=== PATIENT | male | born 1960 | race Caucasian/White ===

== ENCOUNTER 2020-11-29 08:46 | Outpatient (CLI) | payer BC, SELFPAY ==
--- NOTE | ~2020-11-29 | CT_ITS ---
EXAMINATION: CT abdomen pelvis w con DATE: 11/29/2020 09:43 INDICATION: Central lower abdominal and pelvic pain for 2 months TECHNIQUE: Computed tomography (CT) of the abdomen and pelvis was performed with 100 cc Omnipaque 350 intravenous contrast. Automated exposure control and iterative reconstruction technique were employe d. Exam dose: 1557.11 mGy-cm total exam DLP. COMPARISON: 08/02/2019 CT abdomen pelvis FINDINGS: The included lower lung zones are clear of infiltrate or consolidation. Normal heart size. Coronary artery calcification. No pericardial or pleural effusion. Status post cholecystectomy. No hepatic space-occupying mass lesion is evident. No intrahepatic or ex trahepatic bile duct or pancreatic duct dilatation. No pancreatic mass lesion or calcification. Sulema l splenic size. Normal morphology of the adrenal glands. No renal mass lesion or urinary tract calculus or hydroureteronephrosis. The urinary bladder is unrem arkable. Prostate calcifications. There is atherosclerotic calcification of the abdominal aorta and proximal left renal artery. No intr aperitoneal or retroperitoneal or pelvic mass lesion or adenopathy or ascites. No bowel obstruction, bowel wall thickening, pneumatosis or intraperitoneal free air. Diffuse idiopathic skeletal hyperostosis of the thoracic spine. Degenerative changes of the lumbar sp ine. IMPRESSION: Status post cholecystectomy Reviewed, dictated and finalized at [facility]. Reviewed, dictated and finalized at location [facility]. RANGE FEEDER IMPRESSION: Status post cholecystectomy
[2020-11-29 09:09] LABS: Estimated Glomerular Filt Rate > 60
== END 2020-11-29 08:47 | disposition home or self-care (01) ==
PROVIDERS: PCP Internal Medicine; Visit Provider Internal Medicine
DX: R10.9 Unspecified abdominal pain (principal)
CPT/HCPCS: 74177; Q9967

== ENCOUNTER → 2021-01-12 02:24 | Outpatient (CLI) | payer BC, SELFPAY ==
[2021-01-12 19:28] LABS: SARS-CoV-2 RNA PCR Negative
== END ==
PROVIDERS: PCP Internal Medicine; Visit Provider Internal Medicine Gastroenterology
DX: Z01.812 Encounter for preprocedural laboratory examination (principal); Z20.822 Contact with and (suspected) exposure to COVID-19
CPT/HCPCS: C9803; U0003; U0005

== ENCOUNTER 2021-01-15 01:38 | Day surgery (SDC) | payer BC, SELFPAY ==
[2020-12-29 09:55] VITALS: BMI 51.6
[2021-01-15] MEDS: LACTATED RINGERS 1,000 ML 150 ML IV CONT (07:08)
[2021-01-15 07:20] VITALS: BP 167/75; PULSE 67; RESP 18; TEMP 36.8; O2SAT 97
--- NOTE | 2021-01-15 07:23 | PM.HPGS ---
History of Present Illness History of Present Illness Consent: Risks, benefits, and alternatives have been discussed and questions answered. Patient agrees to proceed with procedure. Chief complaint: hx colon polyp Narrative: Darnell Clarke is a 60 year old male here for colon cancer screening. He had a polyp removed 5 years ago Review of Systems Review of Systems: All systems reviewed & are unremarkable except as noted in HPI and below PMFSH Social History Social History Tobacco type: smokeless tobacco Smokeless tobacco user: chewing tobacco Alcohol intake: current Drinks per week: 12 Living arrangements: with family Gender identity (if verbalized by the patient): Male Spiritual care concerns: No Meds Home Medications and Allergies Home Medications Medication Instructions Recorded Confirmed Type aspirin 81 mg PO DAILY 12/29/20 12/29/20 History atorvastatin 40 mg PO DAILY 12/29/20 12/29/20 History lisinopril-hydrochlorothiazide 20 - 25 tablet PO DAILY 12/29/20 12/29/20 History metoprolol succinate 25 mg PO DAILY 12/29/20 12/29/20 History Allergies Allergy/AdvReac Type Severity Reaction Status Date / Time No Known Allergies Allergy Verified 01/15/21 07:17 Vital Signs Vital Signs - 24 hr 01/15/21 07:20 Temperature 36.8 C Pulse Rate 67 Respiratory Rate 18 Blood Pressure 167/75 H Pulse Oximetry 97 Exam Resp: Auscultation: clear to auscultation bilaterally Cardio: Rate: regular rate Rhythm: regular rhythm GI: GI Palp: Yes Soft to palpation and No Tenderness to palpation present (GI) Assessment and Plan Assessment and plan (1) Colon cancer screening: Code(s): Z12.11 - Encounter for screening for malignant neoplasm of colon Status: Acute Assessment and Plan: Colonoscopy with possible biopsy or polypectomy or cautery or injection of substances. (2) Personal history of colonic polyps: Code(s): Z86.010 - Personal history of colonic polyps Status: Acute
[2021-01-15] MEDS: SIMETHICONE ORAL SUSPENSION 20 MG/0.3 ML 30 ML BOTTLE 0.6 ML IRRIGATION (08:48)
[2021-01-15 09:02] VITALS: BP 108/66; PULSE 71; RESP 22; O2SAT 97
[2021-01-15 09:05] VITALS: BP 105/68; PULSE 65; RESP 16; O2SAT 95
[2021-01-15 09:15] VITALS: BP 107/77; PULSE 68; RESP 16; O2SAT 96
== END 2021-01-15 09:25 | disposition home or self-care (01) ==
PROVIDERS: PCP Internal Medicine; Visit Provider Internal Medicine Gastroenterology
PROC: 0DJD8ZZ Inspection of Lower Intestinal Tract, Via Natural or Artificial Opening Endoscopic (ICD-10-PCS; CPT 45378; principal; 2021-01-15 08:30)
DX: Z12.11 Encounter for screening for malignant neoplasm of colon (principal); Z86.010 Personal history of colon polyps; F17.220 Nicotine dependence, chewing tobacco, uncomplicated; Z79.82 Long term (current) use of aspirin
CPT/HCPCS: 45378; J2704; J7120

== ENCOUNTER 2021-11-21 18:36 | Outpatient (CLI) | payer BC, SELFPAY ==
--- NOTE | ~2021-11-21 | XR_ITS ---
XR abdomen obstructive series DATE: 11/21/2021 19:05 INDICATION: Right-sided abdominal pain and constipation for one month TECHNIQUE: Supine and upright AP views of the abdomen COMPARISON: November 29, 2020 CT abdomen pelvis FINDINGS: The lung bases appear clear. Heart size appears normal. No intraperitoneal free air is detected. No evidence of bowel obstruction. No unusual amount of fecal material is identified in the colon. Associated as appear intact. No visceromegaly is noted. No urinary tract calcifications are evident. Surgical clips, right upper quadrant, consistent with cholecystectomy. Degenerative changes of the thoracic and lumbar spine. IMPRESSION: Status post cholecystectomy Nonspecific abdomen Degenerative changes of the thoracic and lumbar spine Reviewed, dictated and finalized at [facility] Reviewed, dictated and finalized at [facility]. OMER SUPPORT MANAGER
== END 2021-11-21 18:37 | disposition home or self-care (01) ==
LOC: CHSIMG 18:38
PROVIDERS: PCP Internal Medicine; Visit Provider Internal Medicine
DX: K59.00 Constipation, unspecified (principal); R10.30 Lower abdominal pain, unspecified
CPT/HCPCS: 74019

== ENCOUNTER 2021-12-15 09:41 | Emergency (ER) | payer BC, SELFPAY ==
[2021-12-15 09:56] VITALS: BP 130/71; PULSE 73; RESP 16; TEMP 36.2; O2SAT 98
[2021-12-15] MEDS: methylPREDNISolone SOD SUCC 125 MG VIAL IM (10:15)
--- NOTE | 2021-12-15 10:25 | ED.SKABFB ---
HPI - Skin/Abscess/Foreign Bdy General Chief complaint: Skin/Abscess/Foreign Body Stated complaint: Rash on neck and body Time Seen by Provider: 12/15/21 09:45 Source: patient and RN notes reviewed Mode of arrival: ambulatory Limitations: no limitations History of Present Illness complaint: rash Onset (ago): week(s) (3) Location: generalized Severity: moderate Severity scale (1-10): 5 Quality: pruritic Pain Consistency: other (0) Relieving factors: medication Exacerbating factors: none Context: new medication Associated symptoms: denies other symptoms Treatments prior to arrival: none Related Data Home Medications Medication Instructions Recorded Confirmed aspirin 81 mg PO DAILY 12/29/20 12/15/21 atorvastatin 40 mg PO DAILY 12/29/20 12/15/21 lisinopril-hydrochlorothiazide 20 - 25 tablet PO DAILY 12/29/20 12/15/21 metoprolol succinate 25 mg PO DAILY 12/29/20 12/15/21 Allergies Allergy/AdvReac Type Severity Reaction Status Date / Time semaglutide [From Ozempic] Allergy Intermediate Rash Verified 12/15/21 10:01 Review of Systems Review of Systems: All systems reviewed & are unremarkable except as noted in HPI and below PMFSH Past Medical History Medical History Allergic reaction to drug Contact dermatitis Social History Social History Tobacco type: smokeless tobacco Smokeless tobacco user: chewing tobacco Alcohol intake: current Drinks per week: 12 Gender identity (if verbalized by the patient): Male Spiritual care concerns: No Exam Const: General: no acute distress and alert Nutritional Appearance: obese Orientation/consciousness: patient oriented x3 HENMT: Head: normal to inspection Ears: external ears normal, TM's normal bilaterally and EAC's normal General nose exam: Normal external nose present and Normal nares present Face and sinus: normal facial exam and sinuses nontender Mouth: Yes moist mucous membranes Teeth and gingiva: dentition normal Eyes: Conjunctivae: conjunctivae normal Pupils: Equal, round and reactive pupils present EOM: EOMs intact bilaterally Neck: Neck: normal visual inspection Chest: Chest palpation & inspection: normal inspection of the chest Resp: Effort & Inspection: normal respiratory effort Auscultation: clear to auscultation bilaterally Cardio: Rate: regular rate Rhythm: regular rhythm GI: Auscultation: normal bowel sounds : General: Yes bladder normal to palpation and Yes no CVA tenderness Male General Exam: Yes normal external exam Testes: Testes normal Back/Spine/Pelvis: Back: no CVA tenderness Skin: General skin exam: normal color Other: mild urticariae of neck trunk and upper limbs. Neuro: General: patient oriented x3, moves all extremities, no meningeal signs, no focal motor deficits and CN's II-XI intact bilaterally Extrem: General: normal to inspection (rash noted.) Psych: Appearance: grossly normal and well kempt Mental Status: mental status grossly normal Affect: normal affect Thought content: Yes Normal thought content present Course Course Emergency Course: Stable with less itching. Reevaluation(s) Reevaluation #1: VSS Date: 12/15/21 Time: 10:03 Vital Signs Vital signs: Vital Signs Temperature 36.2 C L 12/15/21 09:56 Pulse Rate 73 12/15/21 09:56 Respiratory Rate 16 12/15/21 09:56 Blood Pressure 130/71 12/15/21 09:56 Pulse Oximetry 98 12/15/21 09:56 Temperature 36.4 C 12/15/21 10:49 Pulse Rate 77 12/15/21 10:49 Respiratory Rate 16 12/15/21 10:49 Blood Pressure 139/78 12/15/21 10:49 Pulse Oximetry 97 12/15/21 10:49 MDM - Skin/Abscess/Foreign Bdy Differential Diagnosis Differential diagnosis: Likely urticaria, allergic reaction to drug, eczema and contact dermatitis Critical Care Time Critical Care Time Critical Care Time: No Total Critical Care Time: 0 Di
[2021-12-15 10:49] VITALS: BP 139/78; PULSE 77; RESP 16; TEMP 36.4; O2SAT 97
== END 2021-12-15 10:52 | disposition home or self-care (01) ==
PROVIDERS: Emergency Provider Emergency Medicine; PCP Internal Medicine
DX: L23.3 Allergic contact dermatitis due to drugs in contact with skin (principal)
CPT/HCPCS: 96372; 99283; J2930

== ENCOUNTER 2022-03-25 07:03 | Emergency (ER) | payer BC, SELFPAY ==
[2022-03-25] VITALS (8 sets, daily range): BP systolic 114–167; BP diastolic 55–93; PULSE 60–75; RESP 17–18; TEMP 36.3–36.4; O2SAT 94–100
--- NOTE | ~2022-03-25 | XR_ITS ---
XR chest 1V portable DATE: 03/25/2022 07:39 INDICATION: Upper chest pain TECHNIQUE: 2 portable upright AP views COMPARISON: 12/2017 portable AP chest FINDINGS: Resection lateral aspect of the left clavicle. Osteopenia. Heart size appears within normal range. No pulmonary infiltrate or consolidation, pleural effusion or pulmonary vascular congestion or pneumothorax. IMPRESSION: No active cardiopulmonary disease Reviewed, dictated and finalized at location [facility].
--- NOTE | 2022-03-25 07:08 | ECG_ITS ---
Measurements Intervals [place] Rate: 68 P: 35 IN: 200 QRS: 56 QRSD: 90 T: 44 QT: 397 QTc: 423 Interpretive Statements SINUS RHYTHM BASELINE WANDER- I, II, III, AVR, AVL, AVF, V3-V6 NORMAL ECG Electronically Signed On 03-25-2022 7:15:29 CDT by Gianni Bravo D.O.
[2022-03-25] MEDS: ASPIRIN 81 MG CHEWABLE TABLET 324 MG PO (07:23)
[2022-03-25] MEDS: NITROGLYCERIN SL 0.4 MG TABLET SUBLINGUAL (07:24)
[2022-03-25 07:27] LABS: Basophils Percent Auto 0.8 % (0.0-1.0); Eosinophils Absolute Auto 0.73 K/mm3 (0.02-0.50); Eosinophils Percent Auto 5.9 % (1.0-6.0); Hematocrit 43.4 % (40.0-54.0); Immature Granulocyte Absolute 0.06 K/mm3 (0.00-0.00); Immature Granulocyte Percent A 0.5 % (0.0-0.0); Lymphocytes Absolute Auto 3.19 K/mm3 (1.10-4.50); Lymphocytes Percent Auto 25.6 % (18.0-42.0); Mean Corpuscular HGB Conc 32.3 g/dL (32.0-36.0); Mean Corpuscular Hemoglobin 28.4 pg (27.0-31.0); Mean Platelet Volume 8.9 fl (8.7-11.0); Monocytes Absolute Auto 1.17 K/mm3 (0.10-0.90); Monocytes Percent Auto 9.4 % (2.0-11.0); Neutrophils Absolute Auto 7.2 K/mm3 (1.7-7.2); Neutrophils Percent Auto 57.8 % (50.0-70.0); Platelet Count Result 360 K/mm3 (150-420); Red Blood Count 4.93 M/mm3 (4.70-6.10); Red Cell Distribution Width 13.7 % (11.6-14.4); White Blood Count 12.5 K/mm3 (4.8-10.8)
--- NOTE | 2022-03-25 07:29 | ED.GENADULT ---
HPI - General Adult General Chief complaint: Chest Pain Stated complaint: diaphoretic, SOB Time Seen by Provider: 03/25/22 07:16 History of Present Illness HPI narrative: Darnell is a 61M with a PMH of CAD, HTN, HLD, prediabetes, and obesity that presented to the ER with chest pain. He woke up with chest pressure a little before before coming to the ED with CP, SOB, N/V, and lightheadedness. It is unaffected by activity. There was no syncope. Since being in the ED he had a few episodes of sharp chest pain. Related Data Home Medications Medication Instructions Recorded Confirmed aspirin 81 mg tablet,delayed 81 mg PO DAILY 12/29/20 03/25/22 release atorvastatin 40 mg tablet 40 mg PO DAILY 12/29/20 03/25/22 lisinopril 20 20 - 25 tablet PO DAILY 12/29/20 03/25/22 mg-hydrochlorothiazide 25 mg tablet metoprolol succinate 25 mg 25 mg PO DAILY 12/29/20 03/25/22 tablet,extended release 24 hr Allergies Allergy/AdvReac Type Severity Reaction Status Date / Time semaglutide [From Ozempic] Allergy Intermediate Rash Verified 03/25/22 07:38 Review of Systems Constitutional: Constitutional: Reports no additional constitutional complaints, Denies chills, Denies fatigue and Denies fever(s) Eyes: Eyes: Reports no additional eye complaints ENT: Reports system reviewed and no additional complaints, except as documented Cardiovascular: Cardiovascular: Reports no additional cardiovascular complaints Respiratory: Respiratory: Reports as per HPI Gastrointestinal: Gastrointestinal: Reports no additional gastrointestinal complaints Genitourinary: Genitourinary: Reports no additional male genitourinary complaints Musculoskeletal: Musculoskeletal: Reports no additional musculoskeletal complaints Integumentary/Breasts: Skin/Breast: Reports system reviewed and no additional complaints, except as docu Neurologic: Reports system reviewed and no additional complaints, except as documented Psychiatric: Psychiatric: Reports no additional psychiatric complaints Endocrine: Endocrine: Reports no additional endocrine complaints Hematologic/Lymphatic: Hematologic/Lymphatic: Reports no additional hematologic/lymphatic complaints Allergic/Immunologic: Allergic/Immunologic: Reports no additional allergic/immunologic complaints PMFSH Past Medical History Medical History Allergic reaction to drug Contact dermatitis Social History Social History Tobacco type: smokeless tobacco Smokeless tobacco user: chewing tobacco Alcohol intake: current Drinks per week: 12 Gender identity (if verbalized by the patient): Male Spiritual care concerns: No Exam Const: General: healthy appearing and no acute distress HENMT: Head: normal to inspection General nose exam: Normal external nose present Eyes: Conjunctivae: conjunctivae normal Pupils: Equal, round and reactive pupils present Neck: Neck: normal visual inspection Chest: Chest palpation & inspection: normal inspection of the chest and no tenderness Resp: Effort & Inspection: normal respiratory effort Auscultation: clear to auscultation bilaterally Cardio: Rate: regular rate Rhythm: regular rhythm Heart sounds: no murmurs GI: Inspection: non-distended Auscultation: normal bowel sounds : Other: No CVA tenderness Skin: Rashes: no rashes Neuro: General: patient oriented x3 and moves all extremities Extrem: General: normal to inspection Psych: Mental Status: mental status grossly normal Course Course Emergency Course: Ordered EKG, CXR and labs EKG showed NSR with a rate of [address] elevation/depression or ectopy. Radiograph preliminary read: No correlate for patients symptoms, official read to follow. DATE: 03/25/2022 07:39 INDICATION: Upper chest pain? TECHNIQUE: 2 portable upright AP views? COMPARISON: 12/2017 portable AP chest?
[2022-03-25 07:34] LABS: Prothrombin Time 10.8 Seconds (9.50-12.10)
[2022-03-25 07:40] LABS: Alanine Aminotransferase 34 U/L (16-63); Albumin Level 3.4 g/dL (3.4-5.0); Alkaline Phosphatase 112 U/L (46-116); Anion Gap 8 mmol/L (8-16); Aspartate Amino Transferase 16 U/L (15-37); Bilirubin,Total 0.7 mg/dL (0.00-1.00); Blood Urea Nitrogen 19 mg/dL (7-18); Calcium 8.9 mg/dL (8.5-10.1); Carbon Dioxide 27 mmol/L (21-32); Chloride 104 mmol/L (98-108); Estimated Glomerular Filt Rate > 60; Glucose 168 mg/dL (70-99); Lipase 59 U/L (73-393); Magnesium 2.1 mg/dL (1.8-2.4); Osmolality Calculated 294 mOsm/kg (285-295); Sodium 139 mmol/L (136-145); Total Protein 7.4 g/dL (6.4-8.2)
[2022-03-25 08:01] LABS: NT Pro B Type Natriuretic Pept 53 pg/mL (0-125)
[2022-03-25 08:52] LABS: SARS-CoV-2 RNA PCR Negative (Negative)
== END 2022-03-25 09:00 | disposition home or self-care (01) ==
PROVIDERS: Emergency Provider Family Medicine; PCP Internal Medicine
DX: R07.9 Chest pain, unspecified (principal); Z20.822 Contact with and (suspected) exposure to COVID-19
CPT/HCPCS: 71045; 80053; 83690; 83735; 83880; 84484; 85025; 85610; 93005; 99284; A9270; C9803; U0003; U0005

== ENCOUNTER 2023-05-16 10:36 | Outpatient (CLI) | payer OTHER, SELFPAY ==
--- NOTE | ~2023-05-16 | XR_ITS ---
Right Knee Technique: AP, lateral, and sunrise views were obtained. Clinical History: Pain Findings: No fracture or dislocation is seen. Tricompartmental degenerative spurring is present. Prob able mild medial compartment narrowing. Soft tissues are unremarkable. No joint effusion is seen. Impression: Moderate tricompartmental osteoarthritis. Reviewed, dictated and finalized at location . Impression: Moderate tricompartmental osteoarthritis.
== END 2023-05-16 10:37 | disposition home or self-care (01) ==
LOC: CHSIMG 10:39
PROVIDERS: PCP Internal Medicine; Visit Provider Internal Medicine
DX: M25.561 Pain in right knee (principal); E11.9 Type 2 diabetes mellitus without complications; M17.11 Unilateral primary osteoarthritis, right knee
CPT/HCPCS: 73562

== ENCOUNTER 2023-07-03 22:16 | Emergency (ER) | payer OTHER, SELFPAY ==
--- NOTE | ~2023-07-03 | CT_ITS ---
CT of the Abdomen and Pelvis: Indication: Abdominal pain Technique: 2.5 mm axial scans were obtained through the abdomen and pelvis following intravenous adm inistration of 100 cc of Omnipaque 350. Dose reduction technique was used on this scan by utilizing a utomated exposure control and iterative reconstruction technique. The dose-length product (DLP) was 1 527.67 mGy-cm. COMPARISON: 11/29/2020 Findings: Scans through the lung bases are unremarkable. The liver, spleen, pancreas, adrenals and kidneys are within normal limits. Cholecystectomy clips are present. There are atherosclerotic calcifications of the aorta. No lymphadenopathy. No bowel obstruction or bowel wall thickening. There is no evidence to suggest acute appendicitis. Sm all fat-containing umbilical hernia noted. Images through the pelvis were performed. Urinary bladder unremarkable. Prostate gland and seminal ve sicles are unremarkable. No ascites. Impression: Small fat-containing umbilical hernia. No other significant findings. Reviewed, dictated and finalized at [facility]. Impression: Small fat-containing umbilical hernia. No other significant findings.
[2023-07-03 22:17] VITALS: BP 181/99; PULSE 89; RESP 16; TEMP 36.5; O2SAT 97
[2023-07-03 22:58] LABS: Basophils Absolute Auto 0.07 K/mm3 (0.00-0.10); Basophils Percent Auto 0.6 % (0.0-1.0); Eosinophils Absolute Auto 0.43 K/mm3 (0.02-0.50); Eosinophils Percent Auto 3.5 % (1.0-6.0); Hematocrit 41.8 % (40.0-54.0); Hemoglobin 13.8 g/dL (14.0-18.0); Immature Granulocyte Absolute 0.04 K/mm3 (0.00-0.00); Immature Granulocyte Percent A 0.3 % (0.0-0.0); Lymphocytes Percent Auto 21.8 % (18.0-42.0); Mean Corpuscular Hemoglobin 28.8 pg (27.0-31.0); Mean Corpuscular Volume 87.3 fL (78.0-102.0); Mean Platelet Volume 8.9 fl (8.7-11.0); Monocytes Absolute Auto 0.97 K/mm3 (0.10-0.90); Monocytes Percent Auto 7.8 % (2.0-11.0); Neutrophils Absolute Auto 8.2 K/mm3 (1.7-7.2); Platelet Count Result 288 K/mm3 (150-420); Red Blood Count 4.79 M/mm3 (4.70-6.10); Red Cell Distribution Width 13.6 % (11.6-14.4); White Blood Count 12.4 K/mm3 (4.8-10.8)
[2023-07-03] MEDS: SODIUM CHLORIDE 0.9% IV 500 ML 999 ML IV CONT (23:06)
[2023-07-03] MEDS: MORPHINE SULFATE (*CRX) 4 MG/ML INJ IV PUSH (23:06)
[2023-07-03 23:17] LABS: Alanine Aminotransferase 25 U/L (16-63); Albumin Level 3.1 g/dL (3.4-5.0); Alkaline Phosphatase 91 U/L (46-116); Anion Gap 9 mmol/L (8-16); Aspartate Amino Transferase 17 U/L (15-37); Bilirubin,Total 0.6 mg/dL (0.00-1.00); Blood Urea Nitrogen 18 mg/dL (7-18); Calcium 8.8 mg/dL (8.5-10.1); Carbon Dioxide 26 mmol/L (21-32); Chloride 105 mmol/L (98-108); Estimated CRCL calculation 97 ml/min; Estimated Glomerular Filt Rate > 60; Glucose 131 mg/dL (70-99); Lipase 28 U/L (16-77); Osmolality Calculated 293 mOsm/kg (285-295); Potassium 3.3 mmol/L (3.5-5.1); Sodium 140 mmol/L (136-145); Total Protein 6.9 g/dL (6.4-8.2)
[2023-07-03 23:18] LABS: INR 1.1; Partial Thromboplastin Time 28.6 SEC (23.90-30.70); Prothrombin Time 11.7 Seconds (9.50-12.10)
[2023-07-03 23:22] LABS: Lactic Acid Reflex 0.9 mmol/L (0.4-2.0)
[2023-07-04 00:01] VITALS: BP 140/90; PULSE 88; RESP 18; TEMP 36.6; O2SAT 96
--- NOTE | 2023-07-04 00:15 | ED.ABDPAIN ---
HPI - Abdominal Pain General Chief Complaint: Abdominal Pain Stated Complaint: Stomach Pain Source: patient and family Mode of arrival: ambulatory Limitations: no limitations History of Present Illness HPI narrative: This is a 63-year-old male who presents with his with abdominal pain, patient has a known history of umbilical hernia and was told by his primary to monitor, and for last 4 days or so has been having some issues with constipation and has been straining and causing some inflammation around the periumbilical area there is a small umbilical hernia that is reducible it is tender to palpation with no fever chills no nausea vomiting no chest pain no shortness of breath. MD elicited complaint: abdominal pain Pertinent past history: constipation Onset (ago): day(s) Pain Consistency: constant Location: periumbilical Severity: moderate Pain scale (0-10): 6 Quality: aching Radiation: none Migration to: no migration Exacerbating factors: bowel movement Relieving factors: nothing Associated symptoms: denies other symptoms Related Data Home Medications Medication Instructions Recorded Confirmed aspirin 81 mg tablet,delayed 81 mg PO DAILY 12/29/20 07/03/23 release atorvastatin 40 mg tablet 40 mg PO DAILY 12/29/20 07/03/23 lisinopril 20 20 - 25 tablet PO DAILY 12/29/20 07/03/23 mg-hydrochlorothiazide 25 mg tablet metoprolol succinate 25 mg 25 mg PO DAILY 12/29/20 07/03/23 tablet,extended release 24 hr Allergies Allergy/AdvReac Type Severity Reaction Status Date / Time semaglutide [From Ozempic] Allergy Intermediate Rash Verified 03/25/22 07:38 Review of Systems Review of Systems: All systems reviewed & are unremarkable except as noted in HPI and below PMFSH Past Medical History Medical History Allergic reaction to drug Contact dermatitis Social History Social History Tobacco type: smokeless tobacco Smokeless tobacco user: chewing tobacco Alcohol intake: current Drinks per week: 12 Living arrangements: with family Gender identity (if verbalized by the patient): Male Spiritual care concerns: No Exam Const: General: healthy appearing Nutritional Appearance: obese Orientation/consciousness: patient oriented x3 Limitations: no limitations Eyes: Conjunctivae: conjunctivae normal Pupils: Equal, round and reactive pupils present Neck: Neck: normal visual inspection Chest: Chest palpation & inspection: normal inspection of the chest Resp: Effort & Inspection: normal respiratory effort Auscultation: clear to auscultation bilaterally Cardio: Rate: regular rate Rhythm: regular rhythm GI: GI Palp: Yes Soft to palpation, Yes Tenderness to palpation present (GI) and Yes Hernia present ( Umbilical reducible not incarcerated) : General: Yes bladder normal to palpation Back/Spine/Pelvis: Back: no CVA tenderness Skin: General skin exam: normal color Rashes: no rashes Wounds: no wounds Neuro: General: patient oriented x3 and moves all extremities Cranial nerves: Yes Nystagmus not present Extrem: General: normal to inspection and no clubbing, cyanosis or edema Psych: Mental Status: mental status grossly normal Course Course Emergency Course: labs reviewed with patient and within normal limits, white count marginally elevated at 12,000 thousand, patient did receive IV fluids and 4mg IV morphine after reassessment of the patient's pain level has improved. CT scan reviewed with patient and family. Vital Signs Vital signs: Vital Signs Temperature 36.5 C 07/03/23 22:17 Pulse Rate 89 07/03/23 22:17 Respiratory Rate 16 07/03/23 22:17 Blood Pressure 181/99 H 07/03/23 22:17 Pulse Oximetry 97 07/03/23 22:17 Oxygen Delivery Room Air 07/03/23 22:17 Temperature 36.5 C 07/03/23 22:17 Pulse Rate 89 07/03/23 22:17 Respiratory Rate 16 0
[2023-07-04 01:02] VITALS: BP 139/90; PULSE 80; RESP 18; TEMP 37.2; O2SAT 96
== END 2023-07-04 01:02 | disposition home or self-care (01) ==
PROVIDERS: Emergency Provider Emergency Medicine; PCP Internal Medicine
DX: K42.9 Umbilical hernia without obstruction or gangrene (principal); F17.220 Nicotine dependence, chewing tobacco, uncomplicated; Z79.82 Long term (current) use of aspirin
CPT/HCPCS: 36415; 74177; 80053; 83605; 83690; 85025; 85610; 85730; 86140; 96361; 96374; 99284; J2270; J7040; Q9967

== ENCOUNTER 2025-01-17 15:35 | Outpatient (CLI) | payer OTHER, SELFPAY ==
--- NOTE | ~2025-01-17 | XR_ITS ---
XR knee LT 3V Ordering provider: Jean Cordero MD History: . chronic left knee pain . Comparison: October 01, 2016 FINDINGS: BONES: No acute fracture or dislocation. JOINT SPACES: Severe narrowing of the lateral compartment. Marginal osteophytes seen in the knee and patella. SOFT TISSUES: Normal. IMPRESSION: No acute osseous abnormality left knee. Severe osteoarthritic changes. Reviewed, dictated and finalized at location A.
--- OUTSIDE RECORDS SUMMARY | 2025-01-17 18:02 | XMS_ITS | Clinical Summary ---
Author Organization [facility] Address [address] [place] [address] Care Team Providers Care Metal Furniture Glazier Name Role Phone Jean Cordero MD Primary Care Provider [phone] Sofi Francis [facility] Unavailable [phone] Jacobo Lopez MD Unavailable [phone] Allergies No known active allergies Medications aspirin EC 81 MG tablet Take 1 tablet (81 mg total) by mouth daily. 10/26/2013 Active irbesartan 150 MG tablet Take 1 tablet (150 mg total) by mouth daily. 02/01/2022 Active atorvastatin (LIPITOR) 40 MG tablet Take 1 tablet (40 mg total) by mouth nightly at bedtime. 90 tablet 2 03/12/2023 Active metoprolol succinate ER (TOPROL-XL) 50 MG 24 hr tablet take one tablet by mouth daily 30 tablet 6 12/25/2023 Active Active Problems Problem Noted Date Diagnosed Date CHF (congestive heart failure) ([facility]) 12/19/2017 Diabetes ([facility]) 12/19/2017 Obese 12/19/2017 CAD (coronary artery disease) 08/02/2016 Overview (08/02/2016): s/p stent Hypertension 08/02/2016 Carotid artery disease 08/02/2016 Hyperlipidemia 08/02/2016 Sleep apnea 08/02/2016 Encounters Date Type Department Care Team Description 12/20/2024 Telephone [facility] [address] [place] [address] Fabiola Brown MD Reschedule from Last 3 Months Social History Tobacco Use Types Packs/Day Years Used Date Smoking Tobacco: Former Cigarettes 5 30 0 02/06/1970 - 02/07/2000 Smokeless Tobacco: Current Chew Tobacco Cessation:Ready to Q uit: Not Asked; Counseling Given: Not Answered Alcohol Use Standard Drinks/Week Comments Yes 16.7 (1 standard drink = 0.6 oz pure alcohol) on weekends Sex and Gender Information Value Date Recorded Sex Assigned at Not on file Legal Sex Male 10:43 PM CDT Gender Identity Not on file Sexual Orientation Not on file Last Filed Vital Signs Vital Sign Reading Time Taken Comments Blood Pressure 177/70 03/06/2023 10:35 AM CDT Pulse 64 03/06/2023 10:30 AM CDT Temperature 36.9 C (98.4 F) 12/31/2019 10:19 AM DIRECTOR OF CARDIOLOGY Respiratory Rate 20 03/06/2023 10:3 0 AM CDT Oxygen Saturation 96% 03/06/2023 10: 30 AM CDT Inhaled Oxygen Concentration - - Weight 157.2 kg (346 lb 9.6 oz) 023 10:30 AM CDT Height 172.7 cm (5' 8 ) 03/06/2023 10:3 0 AM CDT Body Mass Index 52.7 03/06/2023 10:30 AM CDT Plan of Treatment Upcoming Encounters Date Type Department Care Team ([facility] Contact Info) Description 03/29/2025 8:45 AM CDT Office Visit [facility]-[address] [place] [address] Jacobo Lopez MD [address] [facility] [address] [place] [address] Health Maintenance Due Date Last Done Comments ASCVD Statin 1962 Colorectal Cancer Screening Colonoscopy (10 Years) 1962 Kidney Health Evaluation 1962 Hemoglobin A1C 1962 Annual Physical 1965 Pneumococcal Vaccine: Pediatrics (0 to 5 Years) and At-Risk Patients (6 to 64 Years) (1 of 2 - PCV) 1968 Diabetes: Retinopathy Eye Exam 1980 Hepatitis C 1980 DTaP, Tdap and Td Vaccines ( 1 - Tdap) 1981 Zoster Vaccines (1 of 2) 2012 ASCVD LDL 12/30/2020 12/31/2019 Lipid Panel 12/30/2020 12/31/2019 RSV Immunization or 60+ Years (1 - Risk 60-74 years 1-dose series) 2022 COVID-19 Vaccine (3 - 2023-2 5 season) 2024 01/26/2021, 12/29/2020 Influenza Adult (#1) 2024 09/24/2019 Meningococcal B Vaccine Aged Out No l onger eligible based on patient's age to complete this topic Meningococcal Vaccine Aged Out No christa jose eligible based on patient's age to complete this topic RSV Immunizations Under 20 Months Aged Out No longer eligible b ased on patient's age to complete this topic Procedures Procedure Name Priority Date/Time Associated Diagnosis Comments LIPID PANEL Routine 12/31/2019 from Last 3 Months or Most Recently Relevant to Health Maintenance Results * LIPID PANEL (12/31/2019) CHOLESTEROL 167 HDL 40 TRIGLYCERIDES 85 LDL (CALCULATED) 109 12/31/2019 us [facility] Final Result from Last 3 Months or Most Recently Relevant to Health Maintenance Insurance [facility] [address] [facility] [id number] [facility] Care Teams Metal Furniture Glazier Relationship Specialty Start Date End Date Jean Cordero MD [address] [place] [id number] PCP - General INTERNAL MEDICINE 06/20/16 Sofi Francis ANP- [address] [place] [id number] Nurse Practitioner NURSE PRACTITIONER ADULT HEALTH 02/12/24 Jacobo Lopez MD [address] [facility] [address] [place] [address] Physician INTERVENTIONAL CARDIOLOGY 12/31/24
--- OUTSIDE RECORDS SUMMARY | 2025-01-17 18:02 | XMS_ITS | Encounter Summary ---
Author Organization [facility] Address [facility] access hospital[address] [place] [address] Care Team Providers Care Laundry Worker Name Role Phone Jean Cordero MD Primary Care Provider [phone] Abimael Baldwin MD Unavailable Unavailabl e Violet Cortes APRN, [employer] PORTAL CONSULTANT-C Unavailable Fabiola Brown MD Unavailable [phone] Sofi Francis ANP-BC Unavailable [phone] Jacobo Lopez MD Unavailable [phone] Encounter Details Date Type Department Care Team (Late st Contact Info) Description 11/24/2014 Abstract [facility] AT [address] [address] Abimael Baldwin MD Social History Tobacco Use Types Packs/Day Years Used Date Smoking Tobacco: Never Alcohol Use Standard Drinks/Week Comments No 0 (1 standard drink = 0.6 oz pur e alcohol) Sex and Gender Information Value Date Recorded Sex Assigned at Not on file Legal Sex Male 10:43 PM CDT Gender Identity Not on file Sexual Orientation Not on file documented as of this encounter Plan of Treatment Upcoming Encounters Date Type Department Care Team (Late Contact Info) Description 03/29/2025 8:45 AM CDT Office Visit [facility] [place] [phone] Jacobo Lopez MD [address] [facility] [address] [address] documented as of this encounter Visit Diagnoses Not on filedocumented in this encounter Care Teams Laundry Worker Relationship Specialty Start Date End Date Jean Cordero MD [address] [place] [address] PCP - General INTERNAL MEDICINE 06/20/16 Abimael Baldwin MD [address] [place] [address] [place] [employer] Coordinator CARDIOVASCULAR DISEASE 06/20/16 02/11/24 Violet Cortes APRN, [employer] PORTAL CONSULTANT-C [address] [phone] NURSE PRACTITIONER 01/11/21 02/11/24 Fabiola Brown MD [address] [place] [phone] INTERVENTIONAL CARDIOLOGY 02/12/24 12/31/24 Sofi Francis, [facility] [address] [place] [address] Nurse Practitioner NURSE PRACTITIONER ADULT HEALTH 02/12/24 Jacobo Lopez MD [address] [address] Physician INTERVENTIONAL CARDIOLOGY 12/31/24 documented as of this encounter
== END 2025-01-17 15:36 | disposition home or self-care (01) ==
LOC: CHSIMG 15:37
PROVIDERS: PCP Internal Medicine; Visit Provider Internal Medicine
DX: M25.562 Pain in left knee (principal); M17.11 Unilateral primary osteoarthritis, right knee
CPT/HCPCS: 73562

== ENCOUNTER 2025-04-04 11:42 | Emergency (ER) | payer OTHER, SELFPAY ==
[2025-04-04] VITALS (14 sets, daily range): BP systolic 108–156; BP diastolic 75–94; PULSE 77–94; RESP 14–21; TEMP 36.7; O2SAT 94–96
--- NOTE | ~2025-04-04 | XR_ITS ---
EXAMINATION: XR chest 2V DATE: 04/04/2025 12:22 INDICATION: Chest pain and tightness TECHNIQUE: PA and lateral views of the chest were obtained. COMPARISON: Chest radiograph dated 03/25/2022 FINDINGS: The lungs are clear with no focal airspace opacities, pulmonary edema, pleural effusion or pneumothor ax. The cardiomediastinal silhouette is normal. Mild thoracic spondylosis with bridging osteophytes a t multiple levels consistent with diffuse idiopathic skeletal hyperostosis (DISH). IMPRESSION: 1. No acute cardiopulmonary disease. Reviewed, dictated and finalized at location A.
--- NOTE | 2025-04-04 11:43 | ECG_ITS ---
Test Date: 2025-04-04 11:51:39 Measurements Intervals [place] Rate: 79 P: 37 [place]: 181 QRS: 38 QRSD: 104 T: 21 QT: 396 QTc: 456 Interpretive Statements SINUS RHYTHM WITH OCCASIONAL SUPRAVENTRICULAR PREMATURE COMPLEXES CONSIDER INFERIOR INFARCT, AGE INDETERMINATE ABNORMAL ECG No previous ECG available for comparison Electronically Signed On 04-04-2025 12:09:28 CDT by Gianni Bravo D.O.
[2025-04-04 11:58] LABS: Basophils Absolute Auto 0.08 K/mm3 (0.00-0.10); Basophils Percent Auto 0.7 % (0.0-1.0); Eosinophils Absolute Auto 0.24 K/mm3 (0.02-0.50); Eosinophils Percent Auto 2.2 % (1.0-6.0); Hematocrit 47.3 % (40.0-54.0); Hemoglobin 15.3 g/dL (14.0-18.0); Immature Granulocyte Absolute 0.03 K/mm3 (0.00-0.00); Immature Granulocyte Percent A 0.3 % (0.0-0.0); Lymphocytes Absolute Auto 1.72 K/mm3 (1.10-4.50); Lymphocytes Percent Auto 15.7 % (18.0-42.0); Mean Corpuscular HGB Conc 32.3 g/dL (32-36); Mean Corpuscular Volume 86.5 fL (78.0-102.0); Mean Platelet Volume 8.7 fl (8.7-11.0); Monocytes Absolute Auto 0.88 K/mm3 (0.10-0.90); Monocytes Percent Auto 8.1 % (2.0-11.0); Neutrophils Absolute Auto 7.98 K/mm3 (1.70-7.20); Platelet Count Result 330 K/mm3 (150-420); Red Blood Count 5.47 M/mm3 (4.70-6.10); Red Cell Distribution Width 13.6 % (11.6-14.4); White Blood Count 10.9 K/mm3 (4.8-10.8)
[2025-04-04 12:15] LABS: Alanine Aminotransferase 33 U/L (6-50); Albumin Level 4.5 g/dL (3.5-5.1); Alkaline Phosphatase 88 U/L (38-126); Anion Gap 5 mmol/L (4-12); Aspartate Amino Transferase 34 U/L (17-59); Blood Urea Nitrogen 10 mg/dL (9-20); Carbon Dioxide 31 mmol/L (22-30); Chloride 104 mmol/L (98-107); D Dimer 0.27 mg/L (0.19-0.50); Estimated Glomerular Filt Rate > 60; Glucose 115 mg/dL (65-110); Osmolality Calculated 290 mOsm/kg (285-295); Sodium 140 mmol/L (137-145); Total Protein 7.8 g/dL (6.3-8.2)
[2025-04-04] MEDS: NITROGLYCERIN SL 0.4 MG TABLET SUBLINGUAL ×2 (12:19→12:38)
--- NOTE | 2025-04-04 12:19 | ED.CHESTPAIN ---
HPI - Chest Pain General Chief Complaint: Chest Pain Stated Complaint: chest heavy, dizzy Source: patient Mode of arrival: ambulatory Limitations: no limitations History of Present Illness HPI narrative: 64 year old male presents to the Emergency Department complaining of chest tightness, some shortness of breath and dizziness. Onset several days ago. Intermittent. No radiation. Patient was sitting at work today when he became diaphoretic. History of cardiac stent in 2012. Denies history of known HI. Patient is diabetic. Quit smoking 25 years ago. Was smoking 5 ppd. Now chews tobacco. MD complaint: chest pain and chest discomfort Pertinent past history: coronary artery disease Onset (ago): day(s) (several) Timing of current episode: episodic Prior episodes: Yes Onset: during rest Pain location: substernal Pain radiation: none Severity: mild Quality: tightness and heaviness Relieving factors: nothing Exacerbating factors: nothing Associated symptoms: diaphoresis Treatment prior to arrival: aspirin Risk Factors Coronary artery disease risk factors: diabetes and smoking history Related Data Home Medications ?Medication ?Instructions ?Recorded ?Confirmed ?Last Taken ?Type aspirin 81 mg tablet,delayed 81 mg PO DAILY 12/29/20 07/03/23 01/14/21 History release atorvastatin 40 mg tablet 40 mg PO DAILY 12/29/20 07/03/23 01/14/21 History lisinopril 20 20 - 25 tablet PO DAILY 12/29/20 07/03/23 01/14/21 History mg-hydrochlorothiazide 25 mg tablet metoprolol succinate 25 mg 25 mg PO DAILY 12/29/20 07/03/23 01/14/21 History tablet,extended release 24 hr Allergies Allergy/AdvReac Type Severity Reaction Status Date / Time semaglutide (From Ozempic) Allergy Intermediate Rash Verified 03/25/22 07:38 Review of Systems Review of Systems: All systems reviewed & are unremarkable except as noted in HPI and below Constitutional: Constitutional: Reports as per HPI, Reports no additional constitutional complaints, Denies chills and Denies fever(s) Eyes: Eyes: Reports as per HPI and Reports no additional eye complaints ENT: Reports system reviewed and no additional complaints, except as documented and Reports dizziness Cardiovascular: Cardiovascular: Reports as per HPI, Reports no additional cardiovascular complaints and Reports chest pain Respiratory: Respiratory: Reports as per HPI, Reports no additional respiratory complaints and Reports dyspnea Gastrointestinal: Gastrointestinal: Reports as per HPI and Reports no additional gastrointestinal complaints Genitourinary: Genitourinary: Reports no additional male genitourinary complaints Musculoskeletal: Musculoskeletal: Reports no additional musculoskeletal complaints Integumentary/Breasts: Skin/Breast: Reports system reviewed and no additional complaints, except as docu Neurologic: Reports system reviewed and no additional complaints, except as documented and Reports dizziness Endocrine: Endocrine: Reports no additional endocrine complaints Hematologic/Lymphatic: Hematologic/Lymphatic: Reports no additional hematologic/lymphatic complaints Allergic/Immunologic: Allergic/Immunologic: Reports no additional allergic/immunologic complaints [facility] Past Medical History Medical History Contact dermatitis Allergic reaction to drug Social History Social History Tobacco type: smokeless tobacco Smokeless tobacco user: chewing tobacco Alcohol intake: current Drinks per week: 12 Living arrangements: with family Gender identity (if verbalized by the patient): Male Spiritual care concerns: No Exam Const: General: no acute distress and alert Nutritional Appearance: obese Orientation/consciousness: patient oriented x3 Limitations: no limitations HENMT: Head: normal to inspection Ears: external ears normal Face/Nose/Sinus: Normal external nose present Face and sinus: normal facial exam Mouth: Yes Normal oral and palatal mucosa present Throat: posterior oropharynx normal Eyes: Conjunctivae: conjunctivae normal Pupils: Equal, round and reactive pupils present EOM: EOMs intact bilaterally Direct Ophthalmoscopy: no photophobia Neck: Neck: normal visual inspection Other: no carotid bruit Chest: Chest palpation & inspection: normal inspection of the chest and no tenderness Resp: Effort & Inspection: normal respiratory effort Auscultation: clear to auscultation bilaterally and diminished lung sounds Cardio: Rate: regular rate Rhythm: regular rhythm Heart sounds: no murmurs GI: Inspection: non-distended GI Palp: Yes Soft to palpation, No Tenderness to palpation present (GI), No Guarding due to palpation present (GI) and Yes Hernia present ventral Auscultation: normal bowel sounds : General: Yes bladder normal to palpation Back/Spine/Pelvis: Back: no CVA tenderness Skin: General skin exam: normal color Rashes: no rashes Wounds: no wounds Neuro: General: patient oriented x3, moves all extremities, no meningeal signs, no focal motor deficits and CN's II-XI intact bilaterally Cranial nerves: Yes Nystagmus not present Speech: normal speech Extrem: General: normal to inspection and no clubbing, cyanosis or edema Course Course Emergency Course: 64 y/o male presents to the ED c/o several day history of chest tightness /heaviness, some shortness of breath and dizzy. Chest pain non-radiating. PE: obese, decreased breath sounds, small umbilical/ventral hernia CBC: H/H 15.3/47.3, Plt 330; wbc 10.9 with 73 S,, 16 L, 8 M CMP: Na 140, K 4, Cl 104, CO2 31, Glc 115, BUN 10, Cr 0.83; LFT's normal TNI: <0.012 / 2 Hr TNI: EKG: NSR, 79, borderline 1st degree AVB, Q waves inferiorly c/w old IMI, NAC D-dimer: 0.27 BNP: <20 CXR: NAD Tx: equipment monitor phototypesetting, pulse ox, saline lock. NTG sl [no change]. NTG sl [heaviness relieved] (3320) Report given to Melanie [Dr. Lopez's RN]. Will contact Dr. Lopez [CV] and call back ([phone]) Discussed with Dr. Lopez (). OK for patient to go home. His office will call patient in the next day or so to schedule f/u (office and scheduling cath) *reviewed and discussed results with patient and his . Discussed consultation with Dr. Lopez and his recommendations. Both voice understanding and agreement. Rx and Instructions Vital Signs Vital signs: Vital Signs Temperature 36.7 C 04/04/25 11:42 Pulse Rate 94 04/04/25 11:42 Respiratory Rate 17 04/04/25 11:42 Blood Pressure 117/89 04/04/25 11:42 Pulse Oximetry 96 04/04/25 11:42 Oxygen Delivery Room Air 04/04/25 11:42 Temperature 36.7 C 04/04/25 11:42 Pulse Rate 77 04/04/25 14:01 Respiratory Rate 21 H 04/04/25 14:01 Blood Pressure 108/75 04/04/25 14:01 Pulse Oximetry 95 04/04/25 14:01 Oxygen Delivery Room Air 04/04/25 14:01 MDM - Chest Pain Lab Data 04/04/25 11:54 04/04/25 11:54 Labs: Lab Results 04/04/25 04/04/25 Range/Units 11:54 13:34 WBC 10.9 H (4.8-10.8) K/mm3 RBC 5.47 (4.70-6.10) M/mm3 Hgb 15.3 (14.0-18.0) g/dL Hct 47.3 (40.0-54.0) % MCV 86.5 (78.0-102.0) fL MCH 28.0 (27.0-31.0) pg MCHC 32.3 (32-36) g/dL RDW 13.6 (11.6-14.4) % Plt Count 330 (150-420) K/mm3 MPV 8.7 (8.7-11.0) fl Immature Gran % (Auto) 0.3 H (0.0-0.0) % Neut % (Auto) 73.0 H (50.0-70.0) % Lymph % (Auto) 15.7 L (18.0-42.0) % [place] % (Auto) 8.1 (2.0-11.0) % Eos % (Auto) 2.2 (1.0-6.0) % Baso % (Auto) 0.7 (0.0-1.0) % Lymph # (Auto) 1.72 (1.10-4.50) K/mm3 [place] # (Auto) 0.88 (0.10-0.90) K/mm3 Eos # (Auto) 0.24 (0.02-0.50) K/mm3 Baso # (Auto) 0.08 (0.00-0.10) K/mm3 Abs Immat Gran (auto) 0.03 H (0.00-0.00) K/mm3 Absolute Neuts (auto) 7.98 H (1.70-7.20) K/mm3 Absolute Nucleated RBC 0.00 (0.00-0.00) K/mm3 Nucleated RBC % 0.0 (0-0.0) % D-Dimer 0.27 (0.19-0.50) mg/L Sodium 140 (137-145) mmol/L Potassium 4.0 (3.4-5.0) mmol/L Chloride 104 (98-107) mmol/L Carbon Dioxide 31 H (22-30) mmol/L Anion Gap 5 (4-12) mmol/L BUN 10 (9-20) mg/dL Creatinine 0.83 (0.7-1.3) mg/dL Estim Creat Clear Calc Not Reportable Estimated GFR > 60 (59 - ) Glucose 115 H (65-110) mg/dL Calculated Osmolality 290 (285-295) mOsm/kg Calcium 9.0 (8.4-10.2) mg/dL Total Bilirubin 1.0 (0.2-1.3) mg/dL AST 34 (17-59) U/L ALT 33 (6-50) U/L Alkaline Phosphatase 88 (38-126) U/L Troponin I < 0.012 < 0.012 (0.000-0.034) ng/mL NT-Pro-B Natriuret Pep < 20 (19.9-100) pg/mL Total Protein 7.8 (6.3-8.2) g/dL Albumin 4.5 (3.5-5.1) g/dL Discharge Plan Discharge Clinical Impression: Chest pain, Angina pectoris, CAD (coronary artery disease) Patient Disposition: Home Condition: Stable Instructions: Angina (ED), Chest Pain (ED) Additional Instructions: Continue home medications Use NTG as directed Rest Follow up with your Communications Administrator Return or seek medical evaluation immediately if problems or chest pain returns Patient Language: Hungarian Prescriptions: New nitroglycerin 0.4 mg tablet, sublingual 0.4 mg sublingual Q5M PRN (Reason: chest pain) Qty: 25 0RF Rx Instructions: do not exceed 3 doses per episode No Action diphenhydramine HCl [Benadryl] 25 mg capsule 50 mg PO TID Qty: 20 0RF lisinopril-hydrochlorothiazide 20-25 mg tablet 20 - 25 tablet PO DAILY atorvastatin 40 mg tablet 40 mg PO DAILY aspirin 81 mg Tablet,Delayed Release (Dr/Ec) 81 mg PO DAILY metoprolol succinate 25 mg tablet extended release 24 hr 25 mg PO DAILY Follow-up/Referrals: Jean Cordero MD [Primary Care Provider] - [facility] [Provider Group] Time of Disposition: 14:54
[2025-04-04 12:27] LABS: Troponin I < 0.012 ng/mL (0.000-0.034)
[2025-04-04 12:29] LABS: NT Pro B Type Natriuretic Pept < 20 pg/mL (19.9-100)
[2025-04-04 14:06] LABS: Troponin I < 0.012 ng/mL (0.000-0.034)
== END 2025-04-04 14:58 | disposition home or self-care (01) ==
PROVIDERS: Emergency Provider Emergency Medicine; PCP Internal Medicine
DX: I25.10 Atherosclerotic heart disease of native coronary artery without angina pectoris (principal); E11.9 Type 2 diabetes mellitus without complications; Z87.891 Personal history of nicotine dependence
CPT/HCPCS: 36415; 71046; 80053; 83880; 84484; 85025; 85380; 93005; 99284; A9270

== ENCOUNTER 2025-07-11 11:20 | Emergency (ER) | payer OTHER, SELFPAY ==
[2025-07-11] VITALS (17 sets, daily range): BP systolic 101–142; BP diastolic 65–78; PULSE 73–81; RESP 18; TEMP 36.7; O2SAT 90–99
--- NOTE | ~2025-07-11 | CT_ITS ---
EXAMINATION: CT abdomen pelvis w con DATE: 07/11/2025 12:34 INDICATION: Abdominal pain TECHNIQUE: Computed tomography (CT) of the abdomen and pelvis was performed with 100 mL Omnipaque-350 intravenous contrast. Automated exposure control and iterative reconstruction technique were employed. The dose-length product was 1415.62 mGy-cm. COMPARISON: 07/03/2023 FINDINGS: Again seen is a right lower lobe pneumatocele. Calcified right lower lobe nodule along with a few calcified hepatic and splenic nodules consistent with old granulomatous disease. Heart size is normal. Atherosclerotic coronary artery calcific lesion. No pericardial or pleural effusion. Cholecystectomy clips the gallbladder fossa. Pancreas and bilateral adrenal glands are normal. 1.2 cm cyst at the upper pole the right kidney. No bowel obstruction. Bladder is normal. Mild prostatomegaly measuring 4.5 x 3.7 cm. There is a small fat-containing umbilical hernia with some stranding in the fat within and immediately deep to the hernia suggesting possible ischemia to the herniated fat. No free intraperitoneal gas or fluid. No pathologically enlarged abdominal or pelvic lymphadenopathy. Moderate lumbar and lower thoracic spondylosis. IMPRESSION: 1. Small fat-containing umbilical hernia with mild inflammatory stranding in the fat immediately deep to the hernia suggesting possible ischemia to the herniated fat. No other acute intra-abdominal/pelvic process. 2. Prostatomegaly. Reviewed, dictated and finalized at location A. IMPRESSION: 1. Small fat-containing umbilical hernia with mild inflammatory stranding in th e fat immediately deep to the hernia suggesting possible ischemia to the hernia monae fat. No other acute intra-abdominal/pelvic process. 2. Prostatomegaly.
--- NOTE | 2025-07-11 11:28 | ED.ABDPAIN ---
HPI - Abdominal Pain General Chief Complaint: Abdominal Pain Stated Complaint: abdominal pain with diarrhea Time Seen by Provider: 07/11/25 11:27 Source: patient Mode of arrival: ambulatory Limitations: no limitations History of Present Illness HPI narrative: 65 year old male presents to the Emergency department complaining of abdominal pain. Onset this morning. Describes as sharp, intermittent pains across abdomen. No vomiting, but some nausea. Had diarrhea. Denies blood in stool. Denies urinary tract symptoms. No prior history of. MD elicited complaint: abdominal pain Pertinent past history: none Onset (ago): hour(s) (several) Pain Consistency: intermittent Location: other (across mid abdomen) Severity: moderate Quality: stabbing and sharp Radiation: none Exacerbating factors: movement and other (coughing) Relieving factors: nothing Associated symptoms: denies other symptoms Related Data Home Medications ?Medication ?Instructions ?Recorded ?Confirmed ?Last Taken ?Type aspirin 81 mg tablet,delayed 81 mg PO DAILY 12/29/20 07/11/25 01/14/21 History release atorvastatin 40 mg tablet 40 mg PO DAILY 12/29/20 07/11/25 01/14/21 History hydrochlorothiazide 25 mg tablet 25 mg PO Q12H 07/11/25 07/11/25 07/11/25 History irbesartan 300 mg tablet 300 mg PO DAILY 07/11/25 07/11/25 Unknown History metoprolol succinate 50 mg 50 mg PO Q12H 07/11/25 07/11/25 Unknown History tablet,extended release 24 hr tirzepatide 10 mg/0.5 mL 10 mg subcut WEEKLY 07/11/25 07/11/25 Unknown History subcutaneous pen injector (Mounjaro) Allergies Allergy/AdvReac Type Severity Reaction Status Date / Time semaglutide (From Ozempic) Allergy Intermediate Rash Verified 07/11/25 11:25 Review of Systems Review of Systems: All systems reviewed & are unremarkable except as noted in HPI and below Constitutional: Constitutional: Reports as per HPI, Denies chills and Denies fever(s) Eyes: Eyes: Reports as per HPI ENT: Reports system reviewed and no additional complaints, except as documented Cardiovascular: Cardiovascular: Reports as per HPI and Denies chest pain Respiratory: Respiratory: Reports as per HPI and Denies dyspnea Gastrointestinal: Gastrointestinal: Reports as per HPI, Reports abdominal pain, Denies constipation, Reports diarrhea, Reports nausea and Denies vomiting Genitourinary: Genitourinary: Reports no additional male genitourinary complaints, Denies dysuria and Denies urinary frequency Musculoskeletal: Musculoskeletal: Reports no additional musculoskeletal complaints Integumentary/Breasts: Skin/Breast: Reports system reviewed and no additional complaints, except as docu Neurologic: Reports system reviewed and no additional complaints, except as documented Endocrine: Endocrine: Reports no additional endocrine complaints Hematologic/Lymphatic: Hematologic/Lymphatic: Reports no additional hematologic/lymphatic complaints Allergic/Immunologic: Allergic/Immunologic: Reports no additional allergic/immunologic complaints [facility] Past Medical History Medical History Contact dermatitis Allergic reaction to drug Social History Social History Tobacco type: smokeless tobacco Smokeless tobacco user: chewing tobacco Alcohol intake: current Drinks per week: 12 Living arrangements: with family Gender identity (if verbalized by the patient): Male Spiritual care concerns: No Exam Const: General: alert Nutritional Appearance: obese Orientation/consciousness: patient oriented x3 Limitations: no limitations HENMT: Head: normal to inspection Ears: external ears normal Face/Nose/Sinus: Normal external nose present Face and sinus: normal facial exam Mouth: Yes Normal oral and palatal mucosa present Throat: posterior oropharynx normal Eyes: Conjunctivae: conjunctivae normal Pupils: Equal, round and reactive pupils present EOM: EOMs intact bilaterally Direct Ophthalmoscopy: no photophobia Neck: Neck: normal visual inspection Chest: Chest palpation & inspection: normal inspection of the chest Resp: Effort & Inspection: normal respiratory effort Auscultation: clear to auscultation bilaterally Cardio: Rate: regular rate Rhythm: regular rhythm GI: Inspection: non-distended GI Palp: Yes Soft to palpation, Yes Tenderness to palpation present (GI) (across mid abdomen), No Guarding due to palpation present (GI), No Palpable mass present and No Rebound tenderness present Auscultation: Hypoactive bowel sounds present : General: Yes bladder normal to palpation Back/Spine/Pelvis: Back: no CVA tenderness Skin: General skin exam: normal color Rashes: no rashes Wounds: no wounds Neuro: General: patient oriented x3 Speech: normal speech Gait exam (Neuro): Normal gait present Other: grossly normal Psych: Mental Status: mental status grossly normal Course Course Emergency Course: 65 year old male presents to the Emergency Department complaining of pain across mid abdomen. Onset today. Nausea, no vomiting. Had diarrhea. Denies urinary tract symptoms. No prior history of. PE: obese, mild tenderness across mid abdomen, no guarding or rebound CBC: H/H 15.2/46.4, Plt 351; wbc 18.2 with 79 S, 10 L, 8 M CMP: Na 142, K 3.8, Cl 105, CO2 26, Glc 115, BUN 21, Cr 0.86; LFT's normal A/L: 53 /49 Lactic: 0.9 UA: unremarkable CT Abd/Pelvis: small fat containing umbilical hernia with mild inflammatory stranding in fat immediately deep to hernia suggesting possible ischemia to herniated fat. Tx: saline lock, Toradol 30 mg IVP. *reviewed and discussed results with patient and his . Discussed further management. Will consult with surgeon re: hernia. Patient and voice understanding and agreement. ([id number]) Emmanuel contacted for surgical contact. Will call back. ([id number]) Discussed with Dr. Cerrato (Surgery). Recommends analgesic and f/u office Friday (07/18/25) *Advised patient and his of surgeon's recommendations. Both voice understanding and agreement. Rx and Instructions Vital Signs Vital signs: Vital Signs Temperature 36.7 C 07/11/25 11:20 Pulse Rate 81 07/11/25 11:20 Respiratory Rate 18 07/11/25 11:20 Blood Pressure 134/78 07/11/25 11:20 Pulse Oximetry 96 07/11/25 11:20 Oxygen Delivery Room Air 07/11/25 11:20 Temperature 36.7 C 07/11/25 11:20 Pulse Rate 73 07/11/25 12:51 Respiratory Rate 18 07/11/25 12:51 Blood Pressure 122/66 07/11/25 14:30 Pulse Oximetry 99 07/11/25 14:31 Oxygen Delivery Room Air 07/11/25 12:51 MDM - Abdominal Pain Lab Data 07/11/25 11:48 07/11/25 11:48 Labs: Lab Results 07/11/25 07/11/25 Range/Units 11:42 11:48 WBC 18.2 H (4.8-10.8) K/mm3 RBC 5.34 (4.70-6.10) M/mm3 Hgb 15.2 (14.0-18.0) g/dL Hct 46.4 (40.0-54.0) % MCV 86.9 (78.0-102.0) fL MCH 28.5 (27.0-31.0) pg MCHC 32.8 (32-36) g/dL RDW 13.8 (11.6-14.4) % Plt Count 351 (150-420) K/mm3 MPV 8.8 (8.7-11.0) fl Immature Gran % (Auto) 0.5 H (0.0-0.0) % Neut % (Auto) 79.0 H (50.0-70.0) % Lymph % (Auto) 9.8 L (18.0-42.0) % [place] % (Auto) 8.2 (2.0-11.0) % Eos % (Auto) 2.1 (1.0-6.0) % Baso % (Auto) 0.4 (0.0-1.0) % Lymph # (Auto) 1.78 (1.10-4.50) K/mm3 [place] # (Auto) 1.50 H (0.10-0.90) K/mm3 Eos # (Auto) 0.38 (0.02-0.50) K/mm3 Baso # (Auto) 0.08 (0.00-0.10) K/mm3 Abs Immat Gran (auto) 0.09 H (0.00-0.00) K/mm3 Absolute Neuts (auto) 14.38 H (1.70-7.20) K/mm3 Absolute Nucleated RBC 0.00 (0.00-0.00) K/mm3 Nucleated RBC % 0.0 (0-0.0) % Sodium 142 (137-145) mmol/L Potassium 3.8 (3.4-5.0) mmol/L Chloride 105 (98-107) mmol/L Carbon Dioxide 26 (22-30) mmol/L Anion Gap 11 (4-12) mmol/L BUN 21 H D (9-20) mg/dL Creatinine 0.86 (0.7-1.3) mg/dL Estim Creat Clear Calc 102 ml/min Estimated GFR > 60 (59 - ) Glucose 115 H (65-110) mg/dL Calculated Osmolality 298 H (285-295) mOsm/kg Lactic Acid 0.9 (0.4-2.0) mmol/L Calcium 9.5 (8.4-10.2) mg/dL Total Bilirubin 1.5 H (0.2-1.3) mg/dL AST 26 (17-59) U/L ALT 21 (6-50) U/L Alkaline Phosphatase 83 (38-126) U/L Total Protein 9.0 H (6.3-8.2) g/dL Albumin 4.6 (3.5-5.1) g/dL Amylase 53 (30-110) U/L Lipase 49 (23-300) U/L Urine Color Yellow (Yellow) Urine Appearance Clear (Clear) Urine pH 5.5 (5.0-8.0) Ur Specific [place] 1.025 H (1.010-1.020) Urine Protein Negative (Negative) Urine Glucose (UA) Negative (Negative) Urine Ketones Negative (Negative) Ur Blood (Man) Trace-intact H (Negative) Urine Nitrate Negative (Negative) Urine Bilirubin Negative (Negative) Urine Urobilinogen 0.2 (0.2-1.0) mg/dL Ur Leukocyte Esterase Negative (Negative) Imaging Data Radiologist's impression: ITS Impressions Abdomen/Pelvis CT 07/11/25 13:40 IMPRESSION: 1. Small fat-containing umbilical hernia with mild inflammatory stranding in the fat immediately deep to the hernia suggesting possible ischemia to the herniated fat. No other acute intra-abdominal/pelvic process. 2. Prostatomegaly. Discharge Plan Discharge Clinical Impression: Abdominal pain, Umbilical hernia Patient Disposition: Home Condition: Stable Instructions: Umbilical Hernia (ED), Abdominal Pain (ED) Additional Instructions: Push fluids Take medication as prescribed Follow up Dr. Cerrato next Friday (07/18/25) Return as needed Patient Language: Latvian Prescriptions: New oxycodone 10 mg tablet 10 mg PO Q6H PRN (Reason: pain) Qty: 15 0RF No Action nitroglycerin 0.4 mg tablet, sublingual 0.4 mg sublingual Q5M PRN (Reason: chest pain) Qty: 25 0RF Rx Instructions: do not exceed 3 doses per episode hydrochlorothiazide 25 mg tablet 25 mg PO Q12H irbesartan 300 mg tablet 300 mg PO DAILY metoprolol succinate 50 mg tablet extended release 24 hr 50 mg PO Q12H Mounjaro 10 mg/0.5 mL pen injector 10 mg SUBCUT WEEKLY atorvastatin 40 mg tablet 40 mg PO DAILY aspirin 81 mg Tablet,Delayed Release (Dr/Ec) 81 mg PO DAILY Follow-up/Referrals: Ramu Cerrato MD [Physician, General Surgery] Jean Cordero MD [Primary Care Provider, Internal Medicine] Time of Disposition: 15:12
[2025-07-11] MEDS: KETOROLAC 30 MG/ML VIAL (*BKC) IV PUSH (11:42)
[2025-07-11 11:53] LABS: Hematocrit 46.4 % (40.0-54.0); Hemoglobin 15.2 g/dL (14.0-18.0); Immature Granulocyte Percent A 0.5 % (0.0-0.0); Lymphocytes Absolute Auto 1.78 K/mm3 (1.10-4.50); Mean Corpuscular HGB Conc 32.8 g/dL (32-36); Mean Corpuscular Hemoglobin 28.5 pg (27.0-31.0); Mean Corpuscular Volume 86.9 fL (78.0-102.0); Nucleated Red Blood Cells Absolute Auto 0.00 K/mm3 (0.00-0.00); Nucleated Red Blood Cells Perc 0.0 % (0-0.0); Platelet Count Result 351 K/mm3 (150-420); Red Blood Count 5.34 M/mm3 (4.70-6.10); White Blood Count 18.2 K/mm3 (4.8-10.8)
[2025-07-11 11:53] LABS: Add Urine Microscopic? NO; Appearance Urine Clear (Clear); Glucose Urine UA Negative (Negative); Leukocyte Esterase Ur Negative (Negative); Nitrate Urine Negative (Negative); Specific Grav Ur 1.025 (1.010-1.020)
[2025-07-11 12:04] LABS: Alanine Aminotransferase 21 U/L (6-50); Albumin Level 4.6 g/dL (3.5-5.1); Alkaline Phosphatase 83 U/L (38-126); Amylase 53 U/L (30-110); Anion Gap 11 mmol/L (4-12); Aspartate Amino Transferase 26 U/L (17-59); Bilirubin,Total 1.5 mg/dL (0.2-1.3); Blood Urea Nitrogen 21 mg/dL (9-20); Calcium 9.5 mg/dL (8.4-10.2); Carbon Dioxide 26 mmol/L (22-30); Chloride 105 mmol/L (98-107); Estimated CRCL calculation 102 ml/min; Estimated Glomerular Filt Rate > 60; Glucose 115 mg/dL (65-110); Lipase 49 U/L (23-300); Osmolality Calculated 298 mOsm/kg (285-295); Potassium 3.8 mmol/L (3.4-5.0); Sodium 142 mmol/L (137-145); Total Protein 9.0 g/dL (6.3-8.2)
--- NOTE | 2025-07-11 12:15 | PC.NURSE ---
Pt to CT scanner with radiology transport.
--- NOTE | 2025-07-11 12:35 | PC.NURSE ---
Pt back in room from CT scanner.
--- NOTE | 2025-07-11 13:35 | PC.NURSE ---
RN calls radiology for ETA on CT abdomen read. Radiology states that no one has peanut picker the read and they will look into that at this time.
== END 2025-07-11 15:27 | disposition home or self-care (01) ==
PROVIDERS: Emergency Provider Emergency Medicine; PCP Internal Medicine
DX: K42.9 Umbilical hernia without obstruction or gangrene (principal); Z79.82 Long term (current) use of aspirin; Z79.899 Other long term (current) drug therapy
CPT/HCPCS: 36415; 74177; 80053; 81003; 82150; 83605; 83690; 85025; 96374; 99284; J1885; Q9967

== ENCOUNTER 2025-07-12 09:10 | Outpatient (CLI) | payer OTHER, SELFPAY ==
[2025-07-12 09:21] LABS: Hematocrit 44.6 % (40.0-54.0); Hemoglobin 14.5 g/dL (14.0-18.0); Mean Corpuscular HGB Conc 32.5 g/dL (32-36); Mean Corpuscular Hemoglobin 28.3 pg (27.0-31.0); Mean Corpuscular Volume 87.1 fL (78.0-102.0); Platelet Count Result 296 K/mm3 (150-420); Red Blood Count 5.12 M/mm3 (4.70-6.10); White Blood Count 11.3 K/mm3 (4.8-10.8)
[2025-07-12 09:32] LABS: Hemoglobin A1C 5.7 % (<5.7)
[2025-07-12 10:04] LABS: Alanine Aminotransferase 19 U/L (6-50); Albumin Level 4.3 g/dL (3.5-5.1); Alkaline Phosphatase 83 U/L (38-126); Anion Gap 11 mmol/L (4-12); Aspartate Amino Transferase 23 U/L (17-59); Bilirubin,Total 1.2 mg/dL (0.2-1.3); Blood Urea Nitrogen 18 mg/dL (9-20); Calcium 9.7 mg/dL (8.4-10.2); Carbon Dioxide 26 mmol/L (22-30); Chloride 105 mmol/L (98-107); Estimated Glomerular Filt Rate > 60; Glucose 107 mg/dL (65-110); Osmolality Calculated 295 mOsm/kg (285-295); Potassium 4.0 mmol/L (3.4-5.0); Sodium 142 mmol/L (137-145); Total Protein 7.5 g/dL (6.3-8.2)
[2025-07-12 10:33] LABS: Prostate Specific Antigen 0.3 ng/mL (< OR = 4.0)
== END 2025-07-12 09:11 | disposition home or self-care (01) ==
LOC: CHSLAB 09:12
PROVIDERS: PCP Internal Medicine; Visit Provider Internal Medicine
DX: R10.9 Unspecified abdominal pain (principal); E11.9 Type 2 diabetes mellitus without complications; N40.0 Benign prostatic hyperplasia without lower urinary tract symptoms
CPT/HCPCS: 36415; 80053; 83036; 84153; 85027; G0103

== ENCOUNTER 2025-09-21 14:29 | Outpatient (CLI) | payer OTHER, SELFPAY ==
--- NOTE | 2025-09-21 14:45 | ECG_ITS ---
Test Date: 2025-09-21 14:55:09 Measurements Intervals Rupert Rate: 70 P: 48 IN: 210 QRS: 52 QRSD: 82 T: 56 QT: 380 QTc: 413 Interpretive Statements SINUS RHYTHM WITH FIRST DEGREE AV BLOCK ABNORMAL ECG Compared to ECG 04/04/2025 11:51:39 First degree AV block now present Myocardial infarct finding no longer present Electronically Signed On 09-21-2025 17:40:24 DIRECTOR OF VALUATION by Joe Villegas M.D.
[2025-09-21 14:51] LABS: Hematocrit 43.8 % (42.0-52.0); Hemoglobin 14.6 g/dL (14.0-18.0); Immature Granulocyte Percent A 0.4 % (0-0.5); Lymphocytes Absolute Auto 2.66 K/mm3 (0.9-3.2); Mean Corpuscular HGB Conc 33.3 g/dl (32-36); Mean Corpuscular Hemoglobin 28.7 pg (26-34); Mean Corpuscular Volume 86.1 fl (80-100); Nucleated Red Blood Cells Absolute Auto 0.000 K/mm3 (0.0-0.012); Nucleated Red Blood Cells Perc 0.0 % (0.0-0.2); Platelet Count Result 287 k/mm3 (150-375); Red Blood Count 5.09 M/mm3 (4.6-6.20); White Blood Count 12.4 K/mm3 (4.5-10.0)
== END 2025-09-21 14:30 | disposition home or self-care (01) ==
LOC: ANHLAB 14:30
PROVIDERS: PCP Internal Medicine; Referring Provider Anesthesiology; Visit Provider Surgery
DX: K42.9 Umbilical hernia without obstruction or gangrene (principal); I10 Essential (primary) hypertension; Z01.818 Encounter for other preprocedural examination
CPT/HCPCS: 36415; 85025; 86850; 86900; 86901; 93005

== ENCOUNTER 2025-09-28 01:38 | Day surgery (SDC) | payer OTHER, SELFPAY ==
[2025-09-21 12:39] VITALS: BMI 45.6
--- NOTE | 2025-09-21 12:56 | SUR.PREOP ---
[facility] has started construction of its new state of the art ER which will open Spring 2026. With this, we anticipate parking may be a challenge for some our surgical patients and families. Parking spaces are limited but are available for all Surgical, obstetrics, and ER patients sharing this lot. If you arrive and find you are having a hard time finding a parking space, please note that we understand the challenges, please drive around the hospital and park near Hospital Entrance 1. When you enter this entrance, you can ask a volunteer to direct or take you back to the surgical waiting area to check in. We appreciate everyone?s understanding of these expected challenges while we build for your future. Report to the Outpatient Waiting Room, entrance under the green pavilion located off [address], at time 6a.m. on date 09/28/25. Planned Procedure Time: 07:30am.? Time changes happen often and if your time is changed the preop area will call you the afternoon before. - You and your visitor will be asked to self-screen and do not enter if you have any COVID symptoms. Please call surgeon if you need to reschedule. - A mask is optional within the hospital at this time. Patients may have clear liquids (water, carbonated beverages, clear teas, apple juice) until 3 hours prior to surgery with a maximum of 20 ounces. - No food from midnight until time of surgery and no smoking, or chewing tobacco (or any form of nicotine). No chewing gum, candy or mints. Take only the following medications with a SIP of water on the morning of surgery: Metoprolol DO NOT STOP ANY OF YOUR OTHER PRESCRIPTION MEDICATIONS PRIOR TO SURGERY EXCEPT THE FOLLOWING Hold all vitamins and supplements for 3 days per anesthesiologist. Medications to discontinue per physician Jane Date to take last dose: 09/18/2025 Please no make-up, nail kittitian, hairspray, perfume, deodorant, or body powder the day of surgery.? No jewelry (including any body piercings) or valuables the day of surgery, leave them at home.? Please take a shower or bath the night before, or the morning of, surgery with an antibacterial soap.? Wear comfortable, loose fitting clothing.? Children are encouraged to wear pajamas. - Jewelry must be removed prior to entering the operating room.? Rings and piercings that are not removed may be cut off. - The hospital will not accept responsibility for valuables.? - Please leave all valuables, including medications, at home the day of surgery. If you are going home after surgery, a licensed tractor driver teamster must drive you home.? - NO public transportation without another adult if you receive anesthesia. - We recommend that an adult stay with you for 24 hours following discharge. - We also recommend that you do not drive, make important decision, drink alcoholic beverages, or take any drugs that were not prescribed by your health care provider for at least 24 hours after your discharge time. For Pediatric surgeries, we recommend two adults accompany the child home. Follow any additional instructions given to you from your surgeon. Telephone instructions given to Darnell Clarke and asked if any additional questions and then verbalized understanding. Patient advised to call surgeon office or pre surgery nurse liaison [phone] if any additional questions.
--- NOTE | 2025-09-27 14:00 | PM.SD2 ---
Same Day Admit/Disch: HPI History of Present Illness Chief complaint: umbilical hernia with 3cm defect Narrative: Darnell Clarke is a 65 year old male who presented to the emergency room at [facility] with acute abdominal pain and was found to have an incarcerated umbilical hernia. There was no bowel involvement. Hernia subsequently reduced and is occasionally painful. He had a CT scan that showed the hernia defect to be 3 x 3.2 cm. He has been on Mounjaro and has lost 50 lb in the last 9 months. After discussion in the office, he is taken to surgery now for robotic laparoscopic repair of incarcerated umbilical hernia. [facility] Past Medical History Medical History CAD (coronary artery disease) Hypertension Heart disease Diabetes Arthritis Contact dermatitis Allergic reaction to drug Surgical History Surgical History Hx of knee surgery 1994 Hx of shoulder surgery 1995 Hx of right coronary artery stent placement 2012 Hx laparoscopic cholecystectomy 1999 Hx of appendectomy 1985 Family History Family History Sibling Lymphoma Mother Depression Grandparent Heart disease Social History Social History Smoking packs per day: 5 Smoking cigarettes per day: 100.0 Years smoked: 30 Smoking pack-years: 150.00 Smoking status: Former smoker Tobacco type: smokeless tobacco Smokeless tobacco user: chewing tobacco Alcohol intake: current Drinks per week: 12 Alcohol use details: x2 bottles of bourbon a week Substance use: never Living arrangements: with family Gender identity (if verbalized by the patient): Male Spiritual care concerns: No Same Day Admit/Disch: Med Pre-admit Medications Home Medications ?Medication ?Instructions ?Recorded ?Confirmed ?Type aspirin 81 mg tablet,delayed 81 mg PO DAILY 12/29/20 09/28/25 History release atorvastatin 40 mg tablet 40 mg PO DAILY 12/29/20 09/28/25 History hydrochlorothiazide 25 mg tablet 25 mg PO DAILY 07/11/25 09/28/25 History irbesartan 300 mg tablet 300 mg PO DAILY 07/11/25 09/28/25 History metoprolol succinate 50 mg 50 mg PO DAILY 07/11/25 09/28/25 History tablet,extended release 24 hr tirzepatide 10 mg/0.5 mL 10 mg subcut WEEKLY 09/21/25 09/28/25 History subcutaneous pen injector (Benitounbalbir) ibuprofen 600 mg tablet 600 mg PO Q6H PRN pain #14 tabs 09/28/25 Rx oxycodone-acetaminophen 5 mg-325 1 - 2 tablet PO Q6H PRN pain #25 09/28/25 Rx mg tablet (Percocet) tabs Review of Systems Review of Systems All systems reviewed & are unremarkable except as noted in HPI and below (HPI) Exam Const: General: comfortable, no acute distress, alert and awake HENMT: Head: normocephalic and atraumatic Mouth: Yes Normal oral and palatal mucosa present Eyes: Conjunctivae: conjunctivae normal Pupils: Equal, round and reactive pupils present EOM: EOMs intact bilaterally Neck: Neck: normal visual inspection, no lymphadenopathy and nontender Resp: Effort & Inspection: normal respiratory effort Auscultation: clear to auscultation bilaterally Cardio: Rate: regular rate Rhythm: regular rhythm Heart sounds: no gallops, no murmurs and no rubs GI: Inspection: non-distended and visible herniation GI Palp: Yes Soft to palpation, No Tenderness to palpation present (GI), No Hepatomegaly present, No Splenomegaly present and Yes Hernia present umbilical 3-10 cm (Reducible) Skin: Lesions: no lesions Rashes: no rashes Neuro: General: no focal motor deficits and CN's II-XI intact bilaterally Cranial nerves: Yes Equal, round and reactive pupils present, Yes Bilaterally intact EOM present, Yes facial symmetry and Yes Midline tongue present Speech: normal speech Motor exam (neuro): 5/5 motor strength present throughout and Motor abnormalities not present Extrem: General: no clubbing, cyanosis or edema and edema Psych: Affect: normal affect Thought process: Normal thought process present Insight: Good insight present (Psych) DS: Summary Time Spent with Patient Time attestation: Total time spent providing and/or coordinating discharge services: DS: Admitting Diagnosis Discharge Date September 28, 2025 Admitting Diagnosis Incarcerated umbilical hernia with 3 cm defect-plan to proceed with robotic laparoscopic repair with mesh under anesthesia. Procedure, risks, benefits, and alternatives have been discussed. The usual length of the surgery, length of recovery have been discussed. All questions were answered, he agrees to go ahead. Morbid obesity-has lost 50 lb in the last month though. Essential hypertension DS: Discharge Diagnosis Discharge Diagnosis (1) Incarcerated umbilical hernia: Code(s): K42.0 - Umbilical hernia with obstruction, without gangrene Status: Chronic Assessment and Plan: Robotic laparoscopic repair performed 09/28/[address] Cerrato Discharge Plan Discharge Patient Disposition: Home Discharge Instructions: 1. May shower the day after surgery over incisions. 2. Call office for: -Wound increasingly painful or bleeding -Vomiting -Fever of greater than 101 degrees 3. Expect some blood on dressing and old blood on skin. 4. If no bowel movement for three days, take 1 oz. (30 ml) Milk of Magnesia, if no results, take Fleets enema. 5. No heavy lifting > 15-20 pounds for 2 weeks. 6. No driving for 3 days or while taking narcotic pain medications. 7. Up walking 10-30 minutes three times per day. 8. Resume previous home medications. 9. Follow-up 10-14 days in office for wound check or as previously scheduled. 10. Oral pain medications prescription to be sent home with patient. 11. NUTRITION: Start out by drinking fluids and increase your diet as tolerated. If you experience nausea, try dry toast, crackers, and 7-UP. If nausea or vomiting persists, contact your surgeon?s office. Patient Language: Chinese Stand Alone Forms: General Discharge Instructions Follow-up/Referrals: Ramu Cerrato MD [Physician, General Surgery] - 3 Weeks Discharge Medications: New oxycodone-acetaminophen [Percocet] 5-325 mg tablet 1 - 2 tablet PO Q6H PRN (Reason: pain) Qty: 25 0RF ibuprofen 600 mg tablet 600 mg PO Q6H PRN (Reason: pain) Qty: 14 0RF Continued hydrochlorothiazide 25 mg tablet 25 mg PO DAILY irbesartan 300 mg tablet 300 mg PO DAILY metoprolol succinate 50 mg tablet extended release 24 hr 50 mg PO DAILY atorvastatin 40 mg tablet 40 mg PO DAILY aspirin 81 mg Tablet,Delayed Release (Dr/Ec) 81 mg PO DAILY Mounjaro 10 mg/0.5 mL pen injector 10 mg SUBCUT WEEKLY
[2025-09-28] VITALS (9 sets, daily range): BP systolic 118–143; BP diastolic 60–80; PULSE 54–68; RESP 12–18; TEMP 36.4–36.9; O2SAT 96–100; BMI 46.3
--- OUTSIDE RECORDS SUMMARY | 2025-09-28 01:42 | XMS_ITS | Clinical Summary ---
Author Organization [facility] Address Formerly [facility], [facility] [place] [address] Care Team Providers Care Welfare Aide Name Role Phone Jean Cordero MD Primary Care Provider [phone] [facility] Unavailable [phone] Jacobo Lopez MD Unavailable [phone] Allergies No known active allergies Medications aspirin [...] mouth daily 30 tablet 6 12/25/2023 Active hydroCHLOROthia zide (HYDRODIURIL) 25 MG tablet Take 1/2 tab (12.5mg) for 3 days, then increase to 1 tab (25mg) by mouth daily. 90 tablet 3 03/29/2025 Active Active Problems Problem Noted Date Diagnosed Date CHF (congestive heart failure) 12/19/2017 Diabetes 12/19/2017 Obese 12/19/2017 CAD (coronary artery disease) 08/02/2016 Overview (08/02/2016): s/p stent Hypertension 08/02/2016 Carotid artery disease 08/02/2016 Hyperlipidemia 08/02/2016 Sleep apnea 08/02/2016 Social History Tobacco Use Types Packs/Day Years Used Date Smoking Tobacco: Former Cigarettes 5 30 0 02/06/1970 - 02/07/2000 Smokeless Tobacco: Current Chew Tobacco Cessation:Ready to Q uit: Not Asked; Counseling Given: Not Answered Alcohol Use Standard Drinks/Week Comments Yes 16.7 (1 standard drink = 0.6 oz pure alcohol) on weekends Sex and Gender Information Value Date Recorded Sex Assigned at Male 03/29/2025 8:09 AM CDT Legal Sex Male 10:43 PM CDT Gender Identity Not on file Sexual Orientation Not on file Last Filed Vital Signs Vital Sign Reading Time Taken Comments Blood Pressure 148/85 03/29/2025 8:34 AM CDT Pulse 60 03/29/2025 8:34 AM CDT Temperature 36.9 C (98.4 F) 12/31/2019 10:19 AM SENIOR SCHEDULER Respiratory Rate 14 03/29/2025 8:34 AM CDT Oxygen Saturation 97% 03/29/2025 8:34 AM CDT Inhaled Oxygen Concentration - - Weight 143.3 kg (316 lb) 06/09/2025 7:00 AM CDT Height 172.7 cm (5' 8) 06/09/2025 7:00 AM CDT Body Mass Index 48.05 06/09/2025 7:00 AM CDT Plan of Treatment Upcoming Encounters Date Type Department Care Team ([facility] Contact Info) Description 04/04/2026 8:15 AM CDT Office Visit [facility] [place] [phone] Jacobo Lopez MD [address] [facility] [address] [place] [address] Health Maintenance Due Date Last Done Comments ASCVD Statin 1962 Colorectal Cancer Screening Colonoscopy (10 Years) 1962 Kidney Health Evaluation 1962 Hemoglobin A1C 1962 Annual Physical 1965 Diabetes: Retinopathy Eye Exam 1980 Hepatitis C 1980 DTaP, Tdap and Td Vaccines ( 1 - Tdap) 1981 Pneumococcal Vaccine: 50+ Years (1 of 2 - PCV) 1981 Zoster Vaccines (1 of 2) 2012 ASCVD LDL 12/30/2020 12/31/2019 Lipid Panel 12/30/2020 12/31/2019 RSV Immunization or 60+ Years (1 - Risk 60-74 years 1-dose series) 2022 COVID-19 Vaccine (3 - 2024-2 6 season) 2025 01/26/2021, 12/29/2020 Influenza Adult (#1) 2025 09/24/2019 Hepatitis A Vaccines Aged Out No long er eligible based on patient's age to complete this topic Meningococcal B Vaccine Aged Out No l [...] Most Recently Relevant to Health Maintenance Insurance WAYLON Vázquez [id number] [facility] [place] [address] Care Teams Welfare Aide Relationship Specialty Start Date End Date Jean Cordero MD [address] [place] [phone] PCP - General INTERNAL MEDICINE 06/20/16 Sofi Francis ANP- [address] [place] [id number] Nurse Practitioner NURSE PRACTITIONER ADULT HEALTH 02/12/24 Jacobo Lopez MD [address] [facility] [address] [place] [address] Physician INTERVENTIONAL CARDIOLOGY 12/31/24
--- OUTSIDE RECORDS SUMMARY | 2025-09-28 01:42 | XMS_ITS | Encounter Summary ---
Author Organization [facility] Address [facility] [place] [address] Care Team Providers Care Community Representative Name Role Phone Jean Cordero MD Primary Care Provider [phone] Abimael Baldwin MD Unavailable Violet Cortes APRN MEDICAL OFFICER-C Unavailable [phone] Fabiola Brown MD Unavailable [phone] Sofi Francis ANP-BC Unavailable [phone] Jacobo Lopez MD Unavailable Encounter Details Date Type Department Care Team (Late st Contact Info) Description 11/24/2014 Abstract [facility] [place] [address] [place] [address] Abimael Baldwin MD [address] [place] [phone] Social History Tobacco Use Types Packs/Day Years [...] Department Care Team (Late Contact Info) Description 04/04/2026 8:15 AM CDT Office Visit [facility] [address] [facility] [place] [phone] Jacobo Lopez MD [address] [address] documented as of this encounter Visit Diagnoses Not on filedocumented in this encounter Care Teams Community Representative Relationship Specialty Start Date End Date Jean Cordero MD [address] [place] [address] PCP - General INTERNAL MEDICINE 06/20/16 Abimael Baldwin MD [address] [place] [phone] [employer] Pipe Inspector CARDIOVASCULAR DISEASE 06/20/16 02/11/24 Violet Cortes, ENGINEER SECOND ASSISTANT, MEDICAL OFFICER-C [address] [phone] NURSE PRACTITIONER 01/11/21 02/11/24 Fabiola Brown MD [address] [address] INTERVENTIONAL CARDIOLOGY 02/12/24 12/31/24 Sofi Francis, ANP- [address] [place], [place] [phone] Nurse Practitioner NURSE PRACTITIONER ADULT HEALTH 02/12/24 Jacobo Lopez MD [address] [facility], [address] [address] Physician INTERVENTIONAL CARDIOLOGY 12/31/24 documented as of this encounter
[2025-09-28] MEDS: LACTATED RINGERS 1,000 ML 30 ML IV CONT ×2 (06:30→09:21)
[2025-09-28] MEDS: KETOROLAC 15 MG/ML VIAL (*BKC) IV PUSH (06:33)
[2025-09-28] MEDS: ACETAMINOPHEN 500 MG TABLET 1000 MG PO (06:33)
[2025-09-28 07:02] LABS: Anion Gap 5 mmol/L (4-12); Blood Urea Nitrogen 12 mg/dL (9-20); Calcium 9.2 mg/dL (8.4-10.2); Carbon Dioxide 25 mmol/L (22-30); Chloride 107 mmol/L (98-107); Estimated CRCL calculation 119 ml/min; Estimated Glomerular Filt Rate > 60; Glucose 103 mg/dL (65-110); Potassium 3.6 mmol/L (3.4-5.0); Sodium 137 mmol/L (137-145)
--- NOTE | 2025-09-28 07:02 | WPDHPUPDATE1 ---
History and Physical Update Update Date/Time: 09/28/25 07:02 History and Physical has been reviewed, including an updated exam of the patient. There are NO changes in the patient's condition. Risks, benefits, and alternatives have been discussed and questions answered. Patient agrees to proceed with procedure.
--- NOTE | 2025-09-28 07:09 | WPDANESEPPF ---
Anes - Initial Pre Proc Eval Procedure: Operation Date: 09/28/25 07:30 Proposed Procedures p Robotic Repair Umbilical Hernia - Ramu Cerrato MD Date/Time: 09/28/25 07:09 Surgeon: Ramu Cerrato MD Pre Op Diagnosis: umbilical hernia with 3cm defect Patient Data Age: 65 Gender: M Height: 1.73 m Weight: 138.4 kg Last Vital Signs Temp 36.9 C 09/28/25 06:40 Pulse 68 09/28/25 06:40 Resp 18 09/28/25 06:40 BP 143/69 H 09/28/25 06:40 Pulse Ox 98 09/28/25 06:40 O2 Del Method Room Air 09/28/25 06:40 Allergies Allergy/AdvReac Type Severity Reaction Status Date / Time semaglutide (From OzempMoblico) Allergy Intermediate Rash Verified 09/28/25 06:38 Home Medications ?Medication ?Instructions ?Recorded ?Confirmed ?Type aspirin 81 mg tablet,delayed 81 mg PO DAILY 12/29/20 09/28/25 History release atorvastatin 40 mg tablet 40 mg PO DAILY 12/29/20 09/28/25 History hydrochlorothiazide 25 mg tablet 25 mg PO DAILY 07/11/25 09/28/25 History irbesartan 300 mg tablet 300 mg PO DAILY 07/11/25 09/28/25 History metoprolol succinate 50 mg 50 mg PO DAILY 07/11/25 09/28/25 History tablet,extended release 24 hr tirzepatide 10 mg/0.5 mL 10 mg subcut WEEKLY 09/21/25 09/28/25 History subcutaneous pen injector (Mounbarreraro) Laboratory Tests 09/28/25 06:23 Sodium 137 mmol/L (137-145) Potassium 3.6 mmol/L (3.4-5.0) Chloride 107 mmol/L (98-107) Carbon Dioxide 25 mmol/L (22-30) Anion Gap 5 mmol/L (4-12) BUN 12 D mg/dL (9-20) Creatinine 0.75 mg/dL (0.7-1.3) Estim Creat Clear Calc 119 ml/min Estimated GFR > 60 (59 - ) Glucose 103 mg/dL (65-110) Calcium 9.2 mg/dL (8.4-10.2) Patient hx anesthesia problems: none Family hx anesthesia problems: none Results Review: All pre-operative results and documents have been reviewed as part of the pre-operative evaluation. [facility] Past Medical History Medical History CAD (coronary artery disease) Hypertension Heart disease Diabetes Arthritis Contact dermatitis Allergic reaction to drug Surgical History Surgical History Hx of knee surgery 1994 Hx of shoulder surgery 1995 Hx of right coronary artery stent placement 2012 Hx laparoscopic cholecystectomy 1999 Hx of appendectomy 1985 Family History Family History Sibling Lymphoma Mother Depression Grandparent Heart disease Social History Social History Smoking packs per day: 5 Smoking cigarettes per day: 100.0 Years smoked: 30 Smoking pack-years: 150.00 Smoking status: Former smoker Tobacco type: smokeless tobacco Smokeless tobacco user: chewing tobacco Alcohol intake: current Drinks per week: 12 Alcohol use details: x2 bottles of bourbon a week Substance use: never Living arrangements: with family Gender identity (if verbalized by the patient): Male Spiritual care concerns: No Anes - Eval Final PreProcedure Day of Procedure 09/28/25 07:09 Patient weight: morbidly obese Heart: regular rate and rhythm Lungs: decreased breath sounds Airway: Mallampati scale class III Neurological: alert and oriented Last oral intake: >/= 8 hours ASA classification: III Emergent: no Anesthetic plan: proceed Anesthesia type and monitoring: general ETT and standard monitoring Results Review: All pre-operative results and documents have been reviewed as part of the pre-operative evaluation. Informed Consent: The patient's anesthetic plan and its attendant risks and benefits were discussed with the patient/family/POA. Questions were solicited and answers provided to the satisfaction of the patient/family/POA.
[2025-09-28] MEDS: ceFAZolin 3 GM/D5W 100 ML 100 ML IVPB (07:26)
[2025-09-28] MEDS: BUPIVACAINE/EPINEPHRINE 0.5% 30 ML VIAL INFILTRATE (08:14)
--- NOTE | 2025-09-28 09:24 | P.OP_ITS ---
Procedure Note - Detailed Date of Procedure 09/28/25 Pre-op Diagnosis Incarcerated umbilical hernia with 3cm defect Post-op Diagnosis Same (3.5 cm defect) Procedure Performed Robotic laparoscopic repair incarcerated umbilical hernia with 3.5 cm defect, using mesh Surgeon Ramu Cerrato MD [employer]aving [employer] Eliu ONTIVEROS Anesthesia General and Local Indications Patient presented to the emergency room several months ago with severe pain and a bulge in the umbilicus. He was noted to have incarcerated umbilical hernia which subsequently reduced. He was seen in the office and found to have an umbilical hernia with a 3 cm defect. He subsequently has had additional episodes of incarceration and at the time of surgery has an incarcerated umbilical hernia. He is taken to surgery at this time for robotic laparoscopic repair with mesh. Findings Patient had omentum and properitoneal fat incarcerated in the hernia. The defect was about 3.5 cm. Its longest dimension was length. Description of Procedure Patient was taken to surgery and induced into general anesthesia. The abdomen is prepped and draped. Trocars were placed in the usual fashion starting with a 5 mm applied Medical optical trocar in the left subcostal position. Then under direct visualization the left-sided robotic ports were placed and a robotic 8 mm port was used to replace the initial 5 mm optical trocar. The robot was then brought into the field and docked. Camera and instruments were positioned appropriately. The surgeon went to the robotic console. There was omentum incarcerated in this was gently reduced using gentle cautery and traction. Then midline properitoneal fat was dissected to the area of the hernia defect. The properitoneal fat incarcerated in the defect was then reduced. The defect was exposed fully and measured 3.5 cm. I then dissected midline properitoneal fat caudally towards the bladder and then cephalad toward and including some of the falciform ligament. This left adequate room for the mesh to lay flush with the anterior abdominal wall. I then closed the defect with 0 Stratafix. A 10 x [address] hernia mesh patch was rolled and placed in the abdomen. The needle from the Stratafix was passed through the center of the mesh. The mesh was passed up the Stratafix suture until it was flush with the repair. The mesh was then oriented appropriately and the needle was placed to hold the mesh in position. I then used 2 0 V lock suture and started on the right lateral aspect of the mesh. In running fashion, I sutured the mesh to the anterior abdominal wall circumferentially. I used some of the residual V lock to further suture the center of the mesh to the anterior abdominal wall. I used the remainder of the Stratafix and sutured the mesh further to the anterior abdominal wall mostly in the mid section. We then removed all the suture needles. The mesh was in good position. There was no sign of bleeding. We then removed the instruments and undocked the robot. CO2 was evacuated from the abdominal cavity. The trocars were removed. All skin incisions were closed with subcuticular 4-0 Monocryl skin suture. The wounds were dressed with Exofin surgical and adhesive. Sponge needle counts were correct x2. Patient was awakened and taken to recovery in good condition. Implants 10 x [address] hernia mesh patch Estimated Blood Loss -5 Drains No Packing No Pathology None sent Complications None Condition Stable Disposition PACU [facility] Billing Surgery - Charge Forward: Surgery Billing (Robotic laparoscopic repair incarcerated umbilical hernia with 3.5 cm defect, using mesh)
[2025-09-28] MEDS: oxyCODONE HCL (*CRX) 5 MG TAB IR PO (10:46)
== END 2025-09-28 11:37 | disposition home or self-care (01) ==
PROVIDERS: Nurse Anesthetist, Certified Registered; PCP Internal Medicine; Visit Provider Surgery
PROC: (CPT 49594; principal; 2025-09-28 07:30)
DX: K42.0 Umbilical hernia with obstruction, without gangrene (principal); G89.18 Other acute postprocedural pain; I25.10 Atherosclerotic heart disease of native coronary artery without angina pectoris; I11.9 Hypertensive heart disease without heart failure; I51.9 Heart disease, unspecified; E11.9 Type 2 diabetes mellitus without complications; M19.90 Unspecified osteoarthritis, unspecified site; L25.9 Unspecified contact dermatitis, unspecified cause; F17.220 Nicotine dependence, chewing tobacco, uncomplicated; E66.01 Morbid (severe) obesity due to excess calories; Z68.42 Body mass index [BMI] 45.0-49.9, adult; Z79.82 Long term (current) use of aspirin; Z79.85 Long-term (current) use of injectable non-insulin antidiabetic drugs; Z79.1 Long term (current) use of non-steroidal anti-inflammatories (NSAID); Z79.891 Long term (current) use of opiate analgesic; Z98.890 Other specified postprocedural states; Z95.5 Presence of coronary angioplasty implant and graft; Z90.49 Acquired absence of other specified parts of digestive tract; Z80.7 Family history of other malignant neoplasms of lymphoid, hematopoietic and related tissues; Z82.49 Family history of ischemic heart disease and other diseases of the circulatory system
CPT/HCPCS: 49594; S2900; 36415; 80048; A9270; C1781; J0690; J1100; J1885; J2405; J2704; J3010; J7030; J7120